=== PATIENT | female | born 1970 | race Caucasian/White ===

== ENCOUNTER 2016-11-08 07:21 | Day surgery (SDC) | payer BC, OTHER ==
[2016-11-06 08:22] VITALS: BMI 30.9
[~2016-11-08 07:21] MED LIST: LACTATED RINGERS 1,000 ML IV SCH
[2016-11-08 07:58] VITALS: TEMP 97.8
[2016-11-08] MEDS ORDERED: PROPOFOL 10 MG/ML 20 ML VIAL IV ONE (08:08)
[2016-11-08 08:26] VITALS: RESP 16
--- NOTE | 2016-11-08 08:28 | P.PCN ---
Date of Procedure: 11/08/16 Procedure(s) Performed: tBRIEF HISTORY: Patient is a 46-year-old pleasant white female, scheduled for an elective colonoscopy as a part of long-standing history of ulcerative colitis diagnosed 15 years ago. She is in clinical remission and on no medication maintenance medications. PROCEDURE PERFORMED: Colonoscopy with biopsy. PREOPERATIVE DIAGNOSIS: Surveillance of long-standing history of ulcerative colitis. IV sedation per Anesthesia. PROCEDURE: After informed consent was obtained, the patient, was brought into the endoscopy unit. IV conscious sedation was administered by Anesthesia under continuous monitoring. Digital rectal examination was normal. Initially the Olympus CF-160 flexible video colonoscope was then inserted in the rectum, gradually advanced into the cecum without any difficulty. Careful examination was performed as the scope was gradually being withdrawn. Ileocecal valve and the appendiceal orifice were visualized and appeared normal. Prep was excellent. Mucosa of the cecum, ascending colon, transverse colon, descending colon, sigmoid colon, and rectum appeared normal. Random biopsies were done from several parts of the colon to rule out dysplasia. Retroflexion was performed in the rectum and no lesions were seen. The patient tolerated the procedure well. IMPRESSION: Normal-appearing colon from rectum to cecum with no evidence of colorectal neoplasia . RECOMMENDATIONS: Findings of this examination were discussed with the patient as well as his family. She was advised to follow with the biopsy results. If the biopsy does not show any evidence of dysplasia, she can have a repeat colonoscopy in 2-3 years.
[2016-11-08] MEDS ORDERED: HYDROmorphone 1 MG/ML 1 ML SYRINGE IVP ONE (08:53)
[2016-11-08] MEDS ORDERED: LACTATED RINGERS 1,000 ML IV ONE (09:10)
[2016-11-08 09:26] VITALS: BP 94/63; PULSE 59
--- NOTE | 2016-11-12 13:00 | CDI ---
Pt Name: Brigida Carlton CONFIDENTIAL MR#: [id number] Adm Date: 11/08/2016 7:21:00 AM Printed:11/12/2016 Physician Documentation Request Page 1 of 1 ICD-10-CM Ready Physicians Documentation Request Patient: Brigida Carlton EPI: [id number] Account: [id number] Payer: [facility] Facility: [facility] Location: - Admit Date: 11/08/2016 7:21:00 AM Query Send By: Jonna Potter Phone #: Ext. Communication Date: 11/12/2016 12:57:00 PM Clarification Outpatient By submitting this query, we are merely seeking further clarification of documentation to accurately reflect all conditions that you are monitoring, evaluating, treating or that extend the hospitalization or utilize additional resources of care. Please utilize your independent clinical judgment when addressing the question(s) below. Dear Doctor Do Kepm, The patients Clinical Indicators include: see below Documentation Clarification OP There is a conflict regarding the sedation used during the procedure. Your procedure note states "IV conscious sedation was administered by Anesthesia", but there is other documentation within the encounter that reflects other anesthesia. Which type of sedation/anesthesia was used during the procedure? Moderate/conscious, general/unconscious? Please clarify and document as an addendum to your op report. This information is needed for proper coding and billing. If you dont understand what is needed from you, please contact my international tax manager, Glenna Roth at [phone]. Thank you. PLEASE DOCUMENT ANY ADDITIONAL DIAGNOSES AND/OR SPECIFICITY IN THE PROGRESS NOTES AND/OR DISCHARGE SUMMARY. Agreed & documented Unable to determine/unknown Disagree with the above request Need to discuss MTDD
--- NOTE | 2016-11-18 10:30 | PCN ---
ADDENDUM TO PROCEDURE NOTE: General anesthesia was utilized instead of IV conscious sedation.
== END 2016-11-08 09:47 | disposition home or self-care (01) ==
LOC: ORWHC2ENDO 07:21
PROVIDERS: ATTEND Internal Medicine Gastroenterology
DX: K51.90 Ulcerative colitis, unspecified, without complications (principal); Z79.899 Other long term (current) drug therapy
CPT/HCPCS: 81025; 88305; 45380; J1170; J2704

== ENCOUNTER → 2017-04-23 | Outpatient (CLI) | payer BC ==
--- NOTE | 2017-04-23 14:21 | XR ---
EXAMINATION TYPE: XR shoulder complete RT DATE OF EXAM: 04/23/2017 CLINICAL HISTORY: Limited range of motion and right shoulder pain TECHNIQUE: Three views of the right shoulder are obtained. COMPARISON: 04/11/2016 FINDINGS: There is no acute fracture/dislocation evident in the right shoulder. The acromioclavicul ar and glenohumeral joint spaces appear within normal limits. The visualized ribs are intact and unr emarkable. IMPRESSION: There is no acute fracture or dislocation in the right shoulder. MRI could be performed for further evaluation of rotator cuff injury in this patient with right-sided shoulder pain and vega ited range of motion.
== END | disposition home or self-care (01) ==
LOC: RADXRMAIN 13:42
PROVIDERS: ATTEND Family Medicine
DX: M25.511 Pain in right shoulder (principal)

== ENCOUNTER 2017-12-31 01:48 | Emergency (ER) | payer BC ==
[2017-12-31 01:57] VITALS: BP 108/61; PULSE 75; RESP 18; TEMP 98.9
--- NOTE | 2017-12-31 02:18 | ED ---
Skin/Abscess/FB HPI - General Chief complaint: Skin/Abscess/Foreign Body Stated complaint: foot infection Time Seen by Provider: 12/31/17 01:58 Source: patient, RN notes reviewed, old records reviewed Mode of arrival: ambulatory Limitations: no limitations - History of Present Illness Initial comments: This patient is a 47 year old female, works in [employer] and reports she got off of work with increased pain to right foot. She was diagnosed with plantar wart by PCP whom told her to use compound W strips over her foot. She states when she steps on the spot a certainway, she has pain that shoots up her toe. She reports that since using compound W strips, her foot has a white blister on it, concerned it is infected. No redness, fever, or other symptoms. Non diabetic. - Related Data Home Medications Medication Instructions Recorded Confirmed ALPRAZolam [Xanax] 0.25 mg PO TID PRN 11/06/16 11/08/16 Allergies Allergy/AdvReac Type Severity Reaction Status Date / Time latex Allergy Itching,meño Verified 12/31/17 01:57 h Review of Systems ROS Statement: Those systems with pertinent positive or pertinent negative responses have been documented in the HPI. ROS Other: All systems not noted in ROS Statement are negative. Past Medical History Additional Past Medical History / Comment(s): migraines, occ low BP, ulcerative colitis, arthritis in toe, History of Any Multi-Drug Resistant Organisms: None Reported Past Surgical History: Orthopedic Surgery Additional Past Surgical History / Comment(s): right shoulder repair. Past Anesthesia/Blood Transfusion Reactions: Motion Sickness Past Psychological History: Anxiety Smoking Status: Former smoker Past Alcohol Use History: None Reported Past Drug Use History: None Reported - Past Family History Mother Family Medical History: No Reported History General Exam - General Exam Comments Initial Comments: Well appearing 47 year old female, no distress. Limitations: no limitations General appearance: alert, in no apparent distress Head exam: Present: atraumatic, normocephalic, normal inspection Eye exam: Present: normal appearance, PERRL, EOMI. Absent: scleral icterus, conjunctival injection, periorbital swelling Neck exam: Present: normal inspection. Absent: tenderness, meningismus, lymphadenopathy Respiratory exam: Present: normal lung sounds bilaterally. Absent: respiratory distress, wheezes, rales, rhonchi, stridor Cardiovascular Exam: Present: regular rate, normal rhythm, normal heart sounds. Absent: systolic murmur, diastolic murmur, rubs, gallop, clicks Extremities exam: Present: normal inspection, full ROM, normal capillary refill , other (small area of white blistering between 2nd and third toe on distal metatarsal with central area of thickened skin. This is consistent with plantar wart. No redness. No swelling. Normal Cap refill, and sensation. ). 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 She was diagnosed with plantar wart by PCP whom told her to use compound W strips over her foot. She states when she steps on the spot a certainway, she has pain that shoots up her toe. She reports that since using compound W strips, her foot has a white blister on it, concerned it is infected. Patient foot looks like a normal presentation after using compoud W strips. Disucssed the purpose of the strips is to cause skin debridement in the area it is placed. She needs to follow up with PCP or podiatry for removal of plantar wart. Patient was upset that typewriter assembler will not remove the area. Discussed it takes multiple treatments, and not an emergency procedure. No concern for infection as foot is not red, swollen, or has otehr signs of infection. Patient left before receiving discharge instructions. Disposition Clinical Impression: Plantar wart Disposition: HOME SELF-CARE Condition: Good Instructions: Plantar Wart (ED) Additional Instructions: Patient advised to follow-up with primary care provider and ammonia technician. Patient likely will need to have the wart cut and removed from acid. Does normally have the white spots, and after you please the Compound W on the area. Return to the emergency department if any alarming signs or symptoms occur. Is patient prescribed a controlled substance at d/c from ED?: No If prescribed controlled substance>3 days was MAPS reviewed?: No When asked, does pt state using other controlled substances?: No Referrals: Natanael Ashby DO [Primary Care Provider] - 1-2 days Natanael Ansari DPM [STAFF PHYSICIAN] - 1-2 days Jose Alejandro Gil DPM [STAFF PHYSICIAN] - 1-2 days Time of Disposition: 02:16
== END 2017-12-31 02:24 | disposition home or self-care (01) ==
LOC: EC 01:48
DX: B07.0 Plantar wart (principal); Z87.891 Personal history of nicotine dependence; Z91.040 Latex allergy status
CPT/HCPCS: 99283

== ENCOUNTER 2022-08-24 20:18 | Emergency (ER) | payer BC ==
[2022-08-24 20:30] VITALS: TEMP 98.7
--- NOTE | 2022-08-24 22:21 | ED ---
Abdominal Pain HPI - General Chief Complaint: Abdominal Pain Stated Complaint: abd/back pain Time Seen by Provider: 08/24/22 21:47 Source: patient Mode of arrival: ambulatory Limitations: no limitations - History of Present Illness Initial Comments: This patient is a 52-year-old woman who presents with left flank pain that is been going on proximally 5-6 hours now. Patient states that it started in left flank and was cramping. She states that it was mild to moderate intensity. She did eat a little bit of pizza and it became severe and she had a line the floor. She states the pain improved but it has recurred. The last time that it came on there was coming nausea and she vomited. MD Complaint: flank pain -: hour(s) Location: L flank Radiation: LLQ Migration to: no migration Severity: severe Quality: cramping Consistency: colicky Improves With: nothing Worsens With: eating Associated Symptoms: nausea, vomiting - Related Data Home Medications Medication Instructions Recorded Confirmed ALPRAZolam [Xanax] 0.25 mg PO TID PRN 11/06/16 11/08/16 Previous Rx's Medication Instructions Recorded HYDROcodone/APAP 5-325MG [[place] 1 tab PO Q4HR PRN 3 Days #18 tab 08/25/22 5-325] Ondansetron Odt [Zofran ODT] 4 mg PO Q8HR PRN #10 tab 08/25/22 Tamsulosin [Flomax] 0.4 mg PO DAILY #14 cap 08/25/22 Allergies Allergy/AdvReac Type Severity Reaction Status Date / Time latex Allergy Itching,meño Verified 08/24/22 20:31 h Review of Systems ROS Statement: Those systems with pertinent positive or pertinent negative responses have been documented in the HPI. ROS Other: All systems not noted in ROS Statement are negative. Constitutional: Denies: fever, chills Respiratory: Reports: cough. Denies: dyspnea Cardiovascular: Denies: chest pain, edema Gastrointestinal: Reports: abdominal pain, nausea, vomiting. Denies: diarrhea, constipation, melena, hematochezia Genitourinary: Denies: dysuria, frequency, hematuria Musculoskeletal: Denies: back pain Skin: Denies: rash Neurological: Denies: headache, weakness, numbness Past Medical History Additional Past Medical History / Comment(s): migraines, occ low BP, ulcerative colitis, arthritis in toe, History of Any Multi-Drug Resistant Organisms: None Reported Past Surgical History: Orthopedic Surgery Additional Past Surgical History / Comment(s): right shoulder repair. Past Anesthesia/Blood Transfusion Reactions: Motion Sickness Past Psychological History: Anxiety Smoking Status: Never smoker Past Alcohol Use History: None Reported Past Drug Use History: None Reported - Past Family History Mother Family Medical History: No Reported History General Exam Limitations: no limitations General appearance: alert, in no apparent distress Head exam: Present: atraumatic, normocephalic Eye exam: Present: normal appearance. Absent: scleral icterus, conjunctival injection Neck exam: Present: normal inspection Respiratory exam: Present: normal lung sounds bilaterally. Absent: respiratory distress, wheezes, rales, rhonchi, stridor Cardiovascular Exam: Present: regular rate, normal rhythm, normal heart sounds. Absent: systolic murmur, diastolic murmur, rubs, gallop GI/Abdominal exam: Present: soft. Absent: distended, tenderness, guarding, rebound, rigid, mass Extremities exam: Present: normal inspection, normal capillary refill. Absent: pedal edema, calf tenderness Back exam: Present: normal inspection, CVA tenderness (L). Absent: CVA tenderness (R) Neurological exam: Present: alert Skin exam: Present: warm, dry, intact, normal color. Absent: rash Course Vital Signs 08/24/22 08/24/22 20:28 23:57 Temperature 98.7 F Pulse Rate 79 55 L Respiratory 20 16 Rate Blood Pressure 117/74 118/79 O2 Sat by Pulse 98 95 Oximetry Medical Decision Making - Medical Decision Making This patient is a 52-year-old woman who presents with flank pain strongly suggestive of kidney stone. Other causes of flank pain considered as well. I interpreted the computed tomography scan as showing ureterolithiasis with hydronephrosis. The workup does confirm there is a acute right-sided kidney stone, uncomplicated . Patient has good response to treatment here. We discussed further care and follow-up as well as return parameters. Was pt. sent in by a medical professional or institution? @ no Did you speak to anyone other than the patient for history? @ no Did you review nursing and triage notes? @ -[agree Were old charts reviewed? @ -no Differential Diagnosis? @ -Differential Abdominal Pain Women: Appendicitis, Cholecystitis, diverticulosis, ischemic bowel, pancreatitis, hepatitis, UTI, gastroenteritis, AAA, incarcerated hernia, bowel obstruction, constipation, inflammatory bowel, hepatitis, peptic ulcer disease, perforated viscus,, ovarian torsion, kidney stone, this is not meant to be an all-inclusi ve list EKG interpreted by me (3pts min.)? @ -[none] X-rays interpreted by me (1pt min.)? @ -[none] CT interpreted by me (1pt min.)? @ -yes U/S interpreted by me (1pt. min.)? @ -[none] What testing was considered but not performed? (CT, X-rays, U/S, labs)? Why? @ [ What meds were considered but not given? Why? @ -[none] Did you discuss the management of the patient with other professionals? @ -no Did you reconcile home meds? @ -[none] Was smoking cessation discussed for >3mins.? @ -[none] Was critical care preformed (if so, how long)? @ -[none] Were there social determinants of health that impacted care today? How? (Homelessness, low income, unemployed, alcoholism, drug addiction, transportat ion, low edu. Level, literacy, decrease access to med. care, long term, rehab)? @ -[no Was there de-escalation of care discussed even if they declined? (Discuss DNR or withdrawal of care, Hospice)? @ -[no What co-morbidities impacted this encounter? (DM, HTN, Smoking, COPD, CAD, Cancer, CVA, Hep., AIDS, mental health diagnosis, sleep apnea, morbid obesity)? @ -[none Was patient admitted / discharged? @Discharged Undiagnosed new problem with uncertain prognosis? @ -[none] Drug Therapy requiring intensive monitoring for toxicity (Heparin, Nitro, Insulin, Cardizem)? @ -[none] Were any procedures done? @ -[none] Diagnosis/symptom? @ -[Kidney stone Acute, or Chronic, or Acute on Chronic? @ -[Acute Uncomplicated (without systemic symptoms) or Complicated (systemic symptoms)? @ -[Uncomplicated Side effects of treatment? @ -[none] Exacerbation, Progression, or Severe Exacerbation] @ -[no] Poses a threat to life or bodily function? @ -[no] - Lab Data Result diagrams: 08/24/22 22:49 08/24/22 22:49 Lab Results 08/24/22 08/24/22 08/24/22 Range/Units 22:49 22:49 22:49 WBC 12.3 H (3.8-10.6) k/uL RBC 4.31 (3.80-5.40) m/uL Hgb 13.6 (11.4-16.0) gm/dL Hct 37.7 (34.0-46.0) % MCV 87.5 (80.0-100.0) fL MCH 31.6 (25.0-35.0) pg MCHC 36.2 (31.0-37.0) g/dL RDW 12.5 (11.5-15.5) % Plt Count 291 (150-450) k/uL MPV 7.5 Neutrophils % 72 % Lymphocytes % 22 % Monocytes % 3 % Eosinophils % 2 % Basophils % 1 % Neutrophils # 8.8 H (1.3-7.7) k/uL Lymphocytes # 2.7 (1.0-4.8) k/uL Monocytes # 0.4 (0-1.0) k/uL Eosinophils # 0.2 (0-0.7) k/uL Basophils # 0.1 (0-0.2) k/uL Sodium (137-145) mmol/L Potassium (3.5-5.1) mmol/L Chloride (98-107) mmol/L Carbon Dioxide (22-30) mmol/L Anion Gap mmol/L BUN (7-17) mg/dL Creatinine (0.52-1.04) mg/dL Est GFR (CKD-EPI)AfAm (>60 ml/min/1.73 sqM) Est GFR (CKD-EPI)NonAf (>60 ml/min/1.73 sqM) Glucose (74-99) mg/dL Calcium (8.4-10.2) mg/dL Total Bilirubin (0.2-1.3) mg/dL AST (14-36) U/L ALT (4-34) U/L Alkaline Phosphatase (38-126) U/L Total Protein (6.3-8.2) g/dL Albumin (3.5-5.0) g/dL Amylase (30-110) U/L Lipase (23-300) U/L Urine Color Yellow Urine Appearance Cloudy H (Clear) Urine pH 6.5 (5.0-8.0) Ur Specific Avery 1.034 (1.001-1.035) Urine Protein Trace H (Negative) Urine Glucose (UA) Negative (Negative) Urine Ketones Negative (Negative) Urine Blood Large H (Negative) Urine Nitrite Negative (Negative) Urine Bilirubin Negative (Negative) Urine Urobilinogen <2.0 (<2.0) mg/dL Ur Leukocyte Esterase Negative (Negative) Urine RBC 122 H (0-5) /hpf Urine WBC 2 (0-5) /hpf Ur Squamous Epith Cells 7 H (0-4) /hpf Urine Bacteria Rare H (None) /hpf Urine Mucus Few H (None) /hpf Urine HCG, Qual Not Detected (Not Detectd) 08/24/22 Range/Units 22:49 WBC (3.8-10.6) k/uL RBC (3.80-5.40) m/uL Hgb (11.4-16.0) gm/dL Hct (34.0-46.0) % MCV (80.0-100.0) fL MCH (25.0-35.0) pg MCHC (31.0-37.0) g/dL RDW (11.5-15.5) % Plt Count (150-450) k/uL MPV Neutrophils % % Lymphocytes % % Monocytes % % Eosinophils % % Basophils % % Neutrophils # (1.3-7.7) k/uL Lymphocytes # (1.0-4.8) k/uL Monocytes # (0-1.0) k/uL Eosinophils # (0-0.7) k/uL Basophils # (0-0.2) k/uL Sodium 142 (137-145) mmol/L Potassium 4.1 (3.5-5.1) mmol/L Chloride 106 (98-107) mmol/L Carbon Dioxide 27 (22-30) mmol/L Anion Gap 9 mmol/L BUN 20 H (7-17) mg/dL Creatinine 1.15 H (0.52-1.04) mg/dL Est GFR (CKD-EPI)AfAm 63 (>60 ml/min/1.73 sqM) Est GFR (CKD-EPI)NonAf 55 (>60 ml/min/1.73 sqM) Glucose 109 H (74-99) mg/dL Calcium 9.1 (8.4-10.2) mg/dL Total Bilirubin 0.3 (0.2-1.3) mg/dL AST 32 (14-36) U/L ALT 21 (4-34) U/L Alkaline Phosphatase 83 (38-126) U/L Total Protein 7.4 (6.3-8.2) g/dL Albumin 4.2 (3.5-5.0) g/dL Amylase 75 (30-110) U/L Lipase 36 (23-300) U/L Urine Color Urine Appearance (Clear) Urine pH (5.0-8.0) Ur Specific Avery (1.001-1.035) Urine Protein (Negative) Urine Glucose (UA) (Negative) Urine Ketones (Negative) Urine Blood (Negative) Urine Nitrite (Negative) Urine Bilirubin (Negative) Urine Urobilinogen (<2.0) mg/dL Ur Leukocyte Esterase (Negative) Urine RBC (0-5) /hpf Urine WBC (0-5) /hpf Ur Squamous Epith Cells (0-4) /hpf Urine Bacteria (None) /hpf Urine Mucus (None) /hpf Urine HCG, Qual (Not Detectd) Disposition Clinical Impression: Kidney stone on left side Disposition: HOME SELF-CARE Condition: Good Prescriptions: Tamsulosin [Flomax] 0.4 mg PO DAILY #14 cap HYDROcodone/APAP 5-325MG [[place] 5-325] 1 tab PO Q4HR PRN 3 Days #18 tab PRN Reason: Pain Ondansetron Odt [Zofran ODT] 4 mg PO Q8HR PRN #10 tab PRN Reason: Nausea Is patient prescribed a controlled substance at d/c from ED?: No Referrals: Natanael Ashby DO [Primary Care Provider] - 1-2 days
[2022-08-24 23:01] LABS: Basophils # (A) 0.1 k/uL (0-0.2); Basophils % (A) 1 %; Eosinophils # (A) 0.2 k/uL (0-0.7); Eosinophils % (A) 2 %; HCT 37.7 % (34.0-46.0); HGB 13.6 gm/dL (11.4-16.0); Lymphocytes # (A) 2.7 k/uL (1.0-4.8); Lymphocytes % (A) 22 %; MCH 31.6 pg (25.0-35.0); MCHC 36.2 g/dL (31.0-37.0); MCV 87.5 fL (80.0-100.0); Mean Platelet Volume 7.5; Monocytes # (A) 0.4 k/uL (0-1.0); Monocytes % (A) 3 %; Neutrophils # (A) 8.8 k/uL (1.3-7.7); Neutrophils % (A) 72 %; Platelet Count 291 k/uL (150-450); RBC 4.31 m/uL (3.80-5.40); RDW 12.5 % (11.5-15.5); WBC 12.3 k/uL (3.8-10.6)
[2022-08-24 23:12] LABS: Appearance,Urine Cloudy (Clear); Bacteria,Urine Rare /hpf; Bilirubin,Urine Negative (Negative); Blood,Urine Large (Negative); Color,Urine Yellow; Glucose,Urine (UA) Negative (Negative); Ketones,Urine Negative (Negative); Leukocyte Esterase,Urine Negative (Negative); Mucus,Urine Few /hpf; Nitrite,Urine Negative (Negative); PH, Urine 6.5 (5.0-8.0); Protein,Urine Trace (Negative); RBC,Urine 122 /hpf (0-5); Specific Gravity,Urine 1.034 (1.001-1.035); Squamous Epithelial Cell,Urine 7 /hpf (0-4); Urobilinogen,Urine <2.0 mg/dL (<2.0); WBC,Urine 2 /hpf (0-5)
[2022-08-24] MEDS ORDERED: ONDANSETRON 4 MG/2 ML VIAL IVP STA (23:26)
[2022-08-24] MEDS ORDERED: KETOROLAC 15 MG/ML 1 ML VIAL IVP STA (23:27)
[2022-08-24 23:33] LABS: Albumin 4.2 g/dL (3.5-5.0); Calcium 9.1 mg/dL (8.4-10.2); Potassium 4.1 mmol/L (3.5-5.1); Total Bilirubin 0.3 mg/dL (0.2-1.3); Total Protein 7.4 g/dL (6.3-8.2)
--- NOTE | 2022-08-24 23:51 | CT ---
EXAMINATION TYPE: CT abdomen pelvis wo con DATE OF EXAM: 08/24/2022 COMPARISON: None HISTORY: left flank pain with nausea CT DLP: 750.2 mGycm Automated exposure control for dose reduction was used. Images obtained from the diaphragm to the floor of the pelvis with no contrast. The lung bases are clear of consolidation. No pleural effusion. Heart size is normal. No pericardial effusion. The liver spleen and stomach pancreas and gallbladder appear intact. The bile ducts are not dilated. There is no adrenal mass. Kidneys have normal size. There is left-sided hydronephrosis and hydrourete r. There is mild left-sided perinephric edema. There is obstructing calculus in the proximal left ure ter measuring 5 mm. No retroperitoneal adenopathy. The bladder distends smoothly. Uterus is anteverte d. No free fluid in the pelvis. No pelvic mass. There is no mesenteric edema. No ascites or free air. No sign of a bowel obstruction. Appendix not cl early seen. No sign of thickened appendix. The lumbar vertebra have normal alignment. No compression fracture. There is narrowing at L4-5 and L5 -S1 disc spaces with spurring. Bony pelvis is intact. The hip joints are intact. IMPRESSION: Obstructing calculus proximal left ureter with hydronephrosis. No other calculus seen.
[2022-08-24 23:58] VITALS: BP 118/79; PULSE 55; RESP 16
[2022-08-25] MEDS ORDERED: HYDROmorphone 1 MG/ML 1 ML SYRINGE IVP STA (00:06)
== END 2022-08-25 01:02 | disposition home or self-care (01) ==
LOC: EC 20:18
DX: N20.0 Calculus of kidney (principal); F41.9 Anxiety disorder, unspecified; Z91.040 Latex allergy status
CPT/HCPCS: 36415; 74176; 80053; 81001; 81025; 82150; 83690; 85025; 96374; 96375; 99284

== ENCOUNTER → 2022-08-28 | Outpatient (CLI) | payer BC ==
--- NOTE | 2022-08-28 14:28 | XR ---
EXAMINATION TYPE: XR KUB DATE OF EXAM: 08/28/2022 COMPARISON: CT 08/24/2022 HISTORY: Ureteral calculus TECHNIQUE: AP abdomen FINDINGS: Normal colonic bowel gas is present. Psoas margins are normal. No organomegaly is evident. There appear to be phleboliths present through the pelvis. No renal or ureteral stones identified. No abnormal calcification to correlate with the CT mid left ureteral stone. IMPRESSION: 1. No suspicious renal or ureteral stones identified. CT can be performed if additional evaluation i s required
== END | disposition home or self-care (01) ==
LOC: RADXRMAIN 14:02
PROVIDERS: ATTEND Urology
DX: N20.1 Calculus of ureter (principal)
CPT/HCPCS: 74018